=== PATIENT | female | born 1975 | race Two or more races ===

== ENCOUNTER 2025-06-21 21:08 | Inpatient (IN) | payer BC, OTHER ==
[~2025-06-21] VITALS: Ht 165.1 cm; Wt 89.8 kg
[~2025-06-21 21:08] MED LIST: METF-370 PO
--- NOTE | 2025-06-21 21:16 | ED.PDOC ---
General HPI Comments 49-year-old female who came to ER for abdominal pain. Patient has history of diabetes and kidney stones. For the past week, she has been experiencing supra pubic abdominal pain, pressure, associated with dysuria and gross hematuria. Patient was seen 3 days ago at the clinic, was prescribed with Septra, however symptoms persisted despite the medications. 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[employer]IC [employer] DES[employer]ER Hx Family History Family History: Reviewed,noncontributory to illness Social History Smoker: Non-Smoker Alcohol: Denies ETOH Use Drugs: Denies Drug Use Lives In: Home Constitutional: denies: chills, diaphoresis, fatigue, fever, malaise, sweats, weakness, others EENTM: denies: blurred vision, double vision, ear bleeding, ear discharge, ear drainage, ear pain, ear ringing, eye pain, eye redness, hearing loss, mouth pain, mouth swelling, nasal discharge, nose bleeding, nose congestion, nose pain, photophobia, tearing, throat pain, throat swelling, voice changes, others Respiratory: denies: cough, hemoptysis, orthopnea, SOB at rest, shortness of breath, SOB with excertion, stridor, wheezing, others Cardiovascular: denies: chest pain, dizzy spells, diaphoresis, Dyspnea on exertion, edema, irregular heart beat, left arm pain, lightheadedness, palpitations, PND, syncope, others Gastrointestinal: reports: abdominal pain; denies: abdomen distended, blood streaked bowels, constipated, diarrhea, dysphagia, difficulty swallowing, hematemesis, melena, nausea, poor appetite, poor fluid intake, rectal bleeding, rectal pain, vomiting, others Genitourinary: reports: burning, dysuria, hematuria; denies: abnormal vagina bleeding, dyspareunia, flank pain, frequency, incontinence, pain, , vagi na discharge, urgency, others Neurological: denies: dizziness, fainting, headache, left sided numbness, left sided weakness, numbness, paresthesia, pre-existing deficit, right sided numbness, right sided weakness, seizure, speech problems, tingling, tremors, weakness, others Musculoskeletal: denies: back pain, gout, joint pain, joint swelling, muscle pain, muscle stiffness, neck pain, others Integumetry: denies: bruises, change in color, change in hair/nails, dryness, laceration, lesions, lumps, rash, wounds, others Allergic/Immunocompromised: denies: Difficulty Healing, Frequent Infections, Hives, Itching, others Hematologic/Lymphatic: denies: anemia, blood clots, easy bleeding, easy bruising, swollen glands, others Endocrine: denies: excessive hunger, excessive sweating, excessive thirst, excessive urination, flushing, intolerance to cold, intolerance to heat, unexplained weight gain, unexplained weight loss, others Psychiatric: denies: anxiety, bipolar disorder, depression, hopeless, panic disorder, schizophrenia, sleepless, suicidal, others Physical Exam General Appearance: No Apparent Distress, Normal HEENT: Normal ENT Inspection, Pharynx Normal, TMs Normal Neck: Full Range of Motion, Non-Tender, Normal, Normal Inspection Respiratory: Chest Non-Tender, Lungs Clear, No Accessory Muscle Use, No Respiratory Distress, Normal Breath Sounds Cardiovascular: No Edema, No JVD, No Murmur, No Gallop, Normal Peripheral Pulses, Regular Rate/Rhythm Breast Exam: Deferred Gastrointestinal: No Organomegaly, Non Tender, No Pulsatile Mass, Normal Bowel Sounds, Soft Genitalia: Deferred Pelvic: Deferred Rectal: Deferred Extremities: No calf tenderness, Normal capillary refill, Normal inspection, Normal range of motion, Non-tender, No pedal edema Musculoskeletal : Apperance: Normal Neurologic: Alert, 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 Was a procedure done?: No EKG EKG : Pulse Rate (adult): 95 [place]: RAD Cardiac Rhythm: NSR Differential Diagnosis Kidney stone (Female): Musculoskeletal pain, Pyelonephritis, Renal failure, Strain, Urinary obstruction, Urolithiasis Urinary Problem (Female): Pyelonephritis, Urinary retention, Urolithiasis, UTI X-Ray, Labs, Meds, VS Vital Signs Date Time Temp Pulse Resp B/P (MAP) Pulse Ox O2 Delivery O2 Flow Rate FiO2 06/21/25 22:01 95 06/21/25 21:08 98.1 104 18 144/88 95 98.1 Lab Test 06/21/25 21:30 06/21/25 21:14 Range/Units White Blood Count 9.9 4.4-10.8 10^3/uL Red Blood Count 5.01 4.0-5.20 10^6/uL Hemoglobin 14.6 12.2-16.2 g/dL Hematocrit 42.0 36.0-46.0 % Mean Corpuscular Volume 83.9 80.0-100.0 fL Mean Corpuscular Hemoglobin 29.1 28.0-32.0 pg Mean Corpuscular Hemoglobin Concent 34.7 32.0-36.0 g/dL Red Cell Distribution Width 13.5 11.8-14.3 % Platelet Count 318 140-450 10^3/uL Mean Platelet Volume 7.8 6.9-10.8 fL Neutrophils (%) (Auto) 61.1 37.0-80.0 % Lymphocytes (%) (Auto) 30.4 10.0-50.0 % Monocytes (%) (Auto) 6.8 0.0-12.0 % Eosinophils (%) (Auto) 1.3 0.0-7.0 % Basophils (%) (Auto) 0.4 0.0-2.0 % Neutrophils # (Auto) 6.1 1.6-8.6 10 ^3/uL Lymphocytes # (Auto) 3.0 0.4-5.4 10 ^3/uL Monocytes # (Auto) 0.7 0-1.3 10 ^3/uL Eosinophils # (Auto) 0.1 0-0.8 10 ^3/uL Basophils # (Auto) 0 0-0.2 10 ^3/uL Nucleated Red Blood Cells 0.0 % Sodium Level 141 136-145 mmol/L Potassium Level 4.2 3.5-5.1 mmol/L Chloride Level 105 98-107 mmol/L Carbon Dioxide Level 26 20-31 mmol/L Anion Gap 10 5-15 Blood Urea Nitrogen 11 9-23 mg/dL Creatinine 0.72 0.550-1.02 mg/dL Glomerular Filtration Rate Calc 102 >90 mL/min BUN/Creatinine Ratio 15.3 10.0-20.0 Serum Glucose 166 H 74-106 mg/dL Calcium Level 9.8 8.7-10.4 mg/dL Total Bilirubin 0.4 0.2-1.0 mg/dL Aspartate Amino Transferase (AST) 16 13-40 U/L Alanine Aminotransferase (ALT) 24 7-40 U/L Alkaline Phosphatase 72 46-116 U/L Total Protein 6.9 5.7-8.2 g/dL Albumin 4.7 3.2-4.8 g/dL Lipase 48 12-53 U/L Urine Color Colorless Yellow Urine Clarity Turbid H Clear Urine pH 6.5 5.0-9.0 Urine Specific [place] 1.020 1.001-1.035 Urine Protein 2+ H Negative Urine Ketones Negative Negative Urine Blood 2+ H Negative /uL Urine Nitrite Negative Negative Urine Bilirubin Negative Negative Urine Urobilinogen Normal Negative mg/dL Urine Leukocyte Esterase 3+ Negative /uL Urine RBC 68 0 - 4 /hpf Urine WBC Clumps Present None Seen /hpf Urine Microscopic WBC 518 H 0-5 /HPF Urine Squamous Epithelial Cells Few <5 /hpf Urine Bacteria Few H None Seen /hpf Urine Mucus Few None Seen Urine Glucose 1+ H Normal mg/dL COMPUTERIZED TOMOGRAPHY ABDOMEN AND PELVIS WITHOUT CONTRAST REASON FOR EXAM: abd pain COMPARISON: None TECHNIQUE: Spiral scans were acquired from the diaphragm to the symphysis pubis without intravenous contrast administration. 2-D coronal and sagittal reformatted images were provided. Radiation optimization: All CT scans at this facility use at least one of these dose optimization techniques: Automated exposure control mA and/or kV adjustment per patient size (includes targeted exams where dose is matched to clinical indication) or iterative reconstruction. RADIATION DOSE: CTDI: 13.92 mGy DLP: 901.27 mGy-cm FINDINGS: There are innumerable tiny cavitary lesions at both lung bases measuring up to 2 mm. There is no pleural effusion. There is no pericardial effusion. The spleen is not enlarged. The liver is normal in size and contour. Evaluation of the abdominal contents is suboptimal in the absence of intravenous contrast. The gallbladder is surgically absent. Unenhanced appearance of the pancreas is grossly unremarkable. The adrenal glands are normal. The kidneys are similar in size. There is mild left perinephric and left periureteral stranding. There is no hydronephrosis of either kidney. No renal, ureteral, or bladder calculus is identified. The urinary bladder it appears thick-walled although it is not well distended. The uterus is absent. The ovaries are not seen and may also be absent. No pathologic lymphadenopathy is identified by size criteria. There is no free fluid identified in the abdomen or pelvis. The colonic stool burden is small. The appendix is not seen. There is no pericecal inflammatory change. No acute osseous abnormality is identified. IMPRESSION: Left perinephric and periureteral stranding. No hydronephrosis. No renal or ureteral or bladder calculus is identified. This may be secondary to a recently passed left kidney stone . Ascending urinary tract infection could appear similarly. Correlate clinically with history and physical exam. Innumerable tiny cavitary lesions at both lung bases measuring up to 2 mm. While only the lung bases are visualized on this study, this is concerning for possible septic emboli. Correlate clinically. Dedicated CT of the chest is recommended. Time of 1ST Reevaluation: 21:12 Reevaluation 1ST: Unchanged Patient Education/Counseling: Diagnosis, Treatment Family Education/Counseling: Diagnosis, Treatment Sepsis focused exam: focus exam completed (Patient was given 1 L of normal saline IV fluids rather than the full 30 milligrams/kilogram due to concerns of the fluid overload), time: (2200) SEPSIS Sepsis Screen Physician Orders Ct Ab Pel Wo Con-No Oral Or Iv (06/21/25 21:14) Lactic Acid W/ Reflex Order (06/21/25 23:01) Blood Culture (06/21/25 23:01) NS (06/21/25 23:15) Zosyn Extended Infusion (06/21/25 23:15) Vital Signs Date Time Temp Pulse Resp B/P (MAP) Pulse Ox O2 Delivery O2 Flow Rate FiO2 06/21/25 22:01 95 06/21/25 21:08 98.1 104 18 144/88 95 98.1 Laboratory Tests Test 06/21/25 21:30 White Blood Count 9.9 10^3/uL (4.4-10.8) Departure 1 Departure Time of Disposition: 23:05 Impression: Primary Impression: Pyelonephritis Additional Impression: Acute septic pulmonary embolism Disposition: 09 ADMITTED INPATIENT Condition: Guarded Comments 49-year-old female is complaining of abdominal pain and nausea. On her lab review her blood glucose is mildly elevated 166. Urinalysis shows signs of a urinary infection with 3+ leukocytes and 2+ blood. CT of the abdomen and pelvis shows possible signs of early pyelonephritis with some stranding around the left ureter. There is also multiple small lesions on the base of both of her lungs consistent with possible septic emboli. Patient was given IV fluids and IV Zosyn antibiotics. Patient will need admission for pyelonephritis and septic emboli Critical Care Note Critical Care Time?: Yes (35 min-critical care time only) Critical care comment: Total critical care time: Approximately 36 minutes Due to a high probability of clinically significant, life threatening deterioration, the patient required my highest level of preparedness to intervene emergently and I personally spent this critical care time directly and personally managing the patient. This critical care time included obtaining a history; examining the patient; pulse oximetry; ordering and review of studies; arranging urgent treatment with development of a management plan; evaluation of patient's response to treatment; frequent reassessment; and, discussions with other providers. This critical care time was performed to assess and manage the high probability of imminent, life-threatening deterioration that could result in multi-organ failure. It was exclusive of separately billable procedures and treating other patients. Stability Stability form required: No Heart Score Heart Score: Heart Score Response (Comments) Value History N/A 0 EKG N/A 0 Age N/A 0 Risk Factors N/A 0 Troponin N/A 0 Total 0 I personally scribed for TREVON NOGUEIRA MD ([facility]) on 06/21/25 at 21:16. Electronically submitted by Dominick Thapa ([facility] [employer]). I personally scribed for TREVON NOGUEIRA MD ([facility]) on 06/21/25 at 22:01. Electronically submitted by Dominick Thapa ([facility] I personally scribed for TREVON NOGUEIRA MD ([facility]) on 06/21/25 at 22:42. Electronically submitted by Dominick Thapa ([facility]). TREVON NOGUEIRA MD Jun 21, 2025 21:16
[2025-06-21 21:29] LABS: Urine Protein, UAD 2+ (Negative); Urine WBC Clumps PRESENT /hpf (None Seen)
[2025-06-21 21:46] LABS: Hematocrit 42.0 % (36.0-46.0); Hemoglobin 14.6 g/dL (12.2-16.2); Mean Corpuscular Hemoglobin 29.1 pg (28.0-32.0); Mean Corpuscular Volume 83.9 fL (80.0-100.0); Nucleated Red Blood Cells % 0.0 %
[2025-06-21 22:03] LABS: Alanine Aminotransferase 24 U/L (7-40); Albumin 4.7 g/dL (3.2-4.8); Alkaline Phosphatase 72 U/L (46-116); Anion Gap 10 (5-15); BUN/Creatinine Ratio 15.3 (10.0-20.0); Blood Urea Nitrogen 11 mg/dL (9-23); Calcium 9.8 mg/dL (8.7-10.4); Carbon Dioxide 26 mmol/L (20-31); Chloride 105 mmol/L (98-107); Lipase 48 U/L (12-53); Potassium 4.2 mmol/L (3.5-5.1); Sodium 141 mmol/L (136-145); Total Protein 6.9 g/dL (5.7-8.2)
[2025-06-21 22:04] LABS: Bilirubin, Total 0.4 mg/dL (0.2-1.0)
[2025-06-21 22:11] LABS: Glucose 166 mg/dL (74-106)
--- NOTE | 2025-06-21 22:40 | DVH ---
COMPUTERIZED TOMOGRAPHY ABDOMEN AND PELVIS WITHOUT CONTRAST REASON FOR EXAM: abd pain COMPARISON: None TECHNIQUE: Spiral scans were acquired from the diaphragm to the symphysis pubis without intravenous c ontrast administration. 2-D coronal and sagittal reformatted images were provided. Radiation optimiza tion: All CT scans at this facility use at least one of these dose optimization techniques: Automated exposure control mA and/or kV adjustment per patient size (includes targeted exams where dose is mat ched to clinical indication) or iterative reconstruction. RADIATION DOSE: CTDI: 13.92 mGy DLP: 901.27 mGy-cm FINDINGS: There are innumerable tiny cavitary lesions at both lung bases measuring up to 2 mm. There is no pleu ral effusion. There is no pericardial effusion. The spleen is not enlarged. The liver is normal in size and contour. Evaluation of the abdominal con tents is suboptimal in the absence of intravenous contrast. The gallbladder is surgically absent. Une nhanced appearance of the pancreas is grossly unremarkable. The adrenal glands are normal. The kidn eys are similar in size. There is mild left perinephric and left periureteral stranding. There is no hydronephrosis of either kidney. No renal, ureteral, or bladder calculus is identified. The urinary bladder it appears thick-walled although it is not well distended. The uterus is absent. The ovaries are not seen and may also be absent. No pathologic lymphadenopathy is identified by size criteria. T here is no free fluid identified in the abdomen or pelvis. The colonic stool burden is small. The hannah endix is not seen. There is no pericecal inflammatory change. No acute osseous abnormality is identi fied. IMPRESSION: Left perinephric and periureteral stranding. No hydronephrosis. No renal or ureteral or bladder valencia culus is identified. This may be secondary to a recently passed left kidney stone . Ascending urinary tract infection could appear similarly. Correlate clinically with history and physical exam. Innumerable tiny cavitary lesions at both lung bases measuring up to 2 mm. While only the lung bases are visualized on this study, this is concerning for possible septic emboli. Correlate clinically. De dicated CT of the chest is recommended.
[2025-06-21] MEDS ORDERED: ACETAMINOPHEN 325 MG TAB PO PRN (23:15)
[2025-06-21] MEDS ORDERED: ONDANSETRON HCL 4 MG/2 ML VIAL IV PRN (23:15)
[2025-06-21] MEDS ORDERED: NITROGLYCERIN 0.4 MG SL TAB SL PRN (23:15)
[2025-06-21] MEDS ORDERED: HYDROcodone-ACET 5/325MG TAB PO PRN (23:15)
[2025-06-21] MEDS ORDERED: MORPHINE SULFATE INJ 2 MG/ml SYRG IV PRN ×2 (23:15)
[2025-06-21] MEDS: SODIUM CHLORIDE 0.9% 1,000 ML IV ONE (23:48)
--- NOTE | 2025-06-21 23:48 | DVHHPRES ---
History of Present Illness Resident Creating Document: SURINDER WILEY RESIDENT History of Present Illness Kalli Troy, 49-year-old female with a history of Type II diabetes, obesity, chronic constipation, kidney stones, and recent post-operative status presented to the ER ambulatory arrival with moderate suprapubic abdominal pain and pressure ongoing for several days. Symptoms began spontaneously and have been intermittent, including dysuria and gross hematuria, with a moderate inability to void noted for several minutes prior to arrival. She was evaluated at a clinic three days ago and prescribed bactrim, but her symptoms have persisted despite treatment. She denies fever, nausea, or vomiting. Information was obtained directly from the patient and reviewed alongside nursing notes. Cardiovascular: hyperipidemia Endocrine: Diabetes Past Surgical History: None Family History: None (non contributory ) Smoke: No ALCOHOL: none Drugs: None Lives: with Family Domestic Violence: Neg Review of Systems Constitutional: Yes: Chills, Malaise; No: Fever, Sweats, Weakness, Other Eyes: No: Pain, Vision change, Conjunctivae inflammation, Eyelid inflammation, Other, Redness ENT: No: Ear pain, Ear discharge, Nose pain, Nose discharge, Nose congestion, Mouth pain, Mouth swelling, Throat pain, Throat swelling, Other Respiratory: No: Cough, Dry, Shortness of breath, SOB with excertion, Wheezing, Hemoptysis, Pleuritic Pain, Sputum, Wheezing, Other Cardiovascular: No: Chest Pain, Palpitations, Orthopnea, Paroxysmal Noc. Dyspnea, Edema, Lt Headedness, Other Gastrointestinal: No: Nausea, Vomiting, Abdominal Pain, Diarrhea, Constipation, Melena, Hematochezia, Other Genitourinary: Dysuria, Frequency; No Incontinence; Hematuria; No Retention, No Other Musculoskeletal: No: other, neck pain, shoulder pain, arm pain, back pain, hand pain, leg pain, foot pain Skin: No: Rash, Lesions, Jaundice, Bruising, Other Neurological: No: Weakness, Numbness, Incoordination, Change in speech, Confusion, Seizures, Other Medications Current Medications Medications Dose Ordered Sig/Mira Route Start Time Stop Time Status Last Admin Dose Admin Acetaminophen/ Hydrocodone Bitart 1 tab Q4HP PRN PO 06/21/25 23:15 UNV Ondansetron HCl 4 mg Q4HP PRN IV 06/21/25 23:15 UNV Enoxaparin Sodium 40 mg DAILY SC 06/22/25 10:00 UNV Acetaminophen 650 mg Q6HP PRN PO 06/21/25 23:15 UNV Morphine Sulfate 2 mg Q4HPRN PRN IV 06/21/25 23:15 UNV Nitroglycerin 0.4 mg Q5MINP PRN SL 06/21/25 23:15 UNV Morphine Sulfate 2 mg Q30M PRN IV 06/21/25 23:15 UNV Piperacillin Sod/ Tazobactam Sod 100 ml @ 100 mls/hr Q6HR IV 06/22/25 06:00 UNV Pantoprazole Sodium 40 mg DAILY IV 06/21/25 23:45 UNV Exam Vital Signs Vital Signs Date Time Temp Pulse Resp B/P (MAP) Pulse Ox O2 Delivery O2 Flow Rate FiO2 06/21/25 23:39 99.3 95 18 119/71 (87) 95 99.3 General Appearance: Alert, Oriented X3, mild distress HEENT: Atraumatic, Mucous membr. moist/pink Respiratory: Clear to auscultation, Normal air movement Cardiovascular: Regular rate, Normal S1, Normal S2, No murmurs Abdominal: Normal bowel sounds, Soft, No masses, Other (left CVA angle tenderness) Extremities: No clubbing, No cyanosis, No edema, Normal pulses Skin: No rashes, No breakdown, No significant lesion Neuro: Normal gait, Normal speech Psych/Mental Status: Mental status NL, Mood NL Labs/Xrays Labs Test 06/21/25 23:10 06/21/25 21:30 06/21/25 21:14 Range/Units White Blood Count 9.9 4.4-10.8 10^3/uL Red Blood Count 5.01 4.0-5.20 10^6/uL Hemoglobin 14.6 12.2-16.2 g/dL Hematocrit 42.0 36.0-46.0 % Mean Corpuscular Volume 83.9 80.0-100.0 fL Mean Corpuscular Hemoglobin 29.1 28.0-32.0 pg Mean Corpuscular Hemoglobin Concent 34.7 32.0-36.0 g/dL Red Cell Distribution Width 13.5 11.8-14.3 % Platelet Count 318 140-450 10^3/uL Mean Platelet Volume 7.8 6.9-10.8 fL Neutrophils (%) (Auto) 61.1 37.0-80.0 % Lymphocytes (%) (Auto) 30.4 10.0-50.0 % Monocytes (%) (Auto) 6.8 0.0-12.0 % Eosinophils (%) (Auto) 1.3 0.0-7.0 % Basophils (%) (Auto) 0.4 0.0-2.0 % Neutrophils # (Auto) 6.1 1.6-8.6 10 ^3/uL Lymphocytes # (Auto) 3.0 0.4-5.4 10 ^3/uL Monocytes # (Auto) 0.7 0-1.3 10 ^3/uL Eosinophils # (Auto) 0.1 0-0.8 10 ^3/uL Basophils # (Auto) 0 0-0.2 10 ^3/uL Nucleated Red Blood Cells 0.0 % Sodium Level 141 136-145 mmol/L Potassium Level 4.2 3.5-5.1 mmol/L Chloride Level 105 98-107 mmol/L Carbon Dioxide Level 26 20-31 mmol/L Anion Gap 10 5-15 Blood Urea Nitrogen 11 9-23 mg/dL Creatinine 0.72 0.550-1.02 mg/dL Glomerular Filtration Rate Calc 102 >90 mL/min BUN/Creatinine Ratio 15.3 10.0-20.0 Serum Glucose 166 H 74-106 mg/dL Calcium Level 9.8 8.7-10.4 mg/dL Total Bilirubin 0.4 0.2-1.0 mg/dL Aspartate Amino Transferase (AST) 16 13-40 U/L Alanine Aminotransferase (ALT) 24 7-40 U/L Alkaline Phosphatase 72 46-116 U/L Total Protein 6.9 5.7-8.2 g/dL Albumin 4.7 3.2-4.8 g/dL Urine Color Colorless Yellow Urine Clarity Turbid H Clear Urine pH 6.5 5.0-9.0 Urine Specific Ashley 1.020 1.001-1.035 Urine Protein 2+ H Negative Urine Ketones Negative Negative Urine Blood 2+ H Negative /uL Urine Nitrite Negative Negative Urine Bilirubin Negative Negative Urine Urobilinogen Normal Negative mg/dL Urine Leukocyte Esterase 3+ Negative /uL Urine RBC 68 0 - 4 /hpf Urine WBC Clumps Present None Seen /hpf Urine Microscopic WBC 518 H 0-5 /HPF Urine Squamous Epithelial Cells Few <5 /hpf Urine Bacteria Few H None Seen /hpf Urine Mucus Few None Seen Urine Glucose 1+ H Normal mg/dL SEPSIS Sepsis Screen Date sepsis recognized/suspect: Jun 21, 2025 Time Sepsis recognized/suspect: 2107 Recent Procedure: No On Antibiotic Therapy: Yes Respiratory Rate >20: No Heart Rate >90: Yes Temp<36 C (96.8 F) or >38.3 C: No SBP <90 or MAP <65 mmHG: No New Acute Mental Status Change: No Is the patient on CPAP, BIPAP,: No Physician Orders Ct Ab Pel Wo Con-No Oral Or Iv (06/21/25 21:14) Lactic Acid W/ Reflex Order (06/21/25 23:01) Blood Culture (06/21/25 23:01) Sodium Chloride 0.9% (06/21/25 23:15) Piperacillin-Tazob 3.375gm (Zosyn 3.375g (06/21/25 23:15) Admit (06/21/25 23:15) Allergies (06/21/25 23:15) Code Status (06/21/25 23:15) Hydrocodone-Acet 5/325mg Tab ([place] 5/32 (06/21/25 23:15) Ondansetron Hcl (Zofran) (06/21/25 23:15) Enoxaparin Sodium (Lovenox) (06/22/25 10:00) Complete Blood Count (06/22/25 04:00) Comprehensive Metabolic Panel (06/22/25 04:00) Cardiac Diet-2gna,Lofat,Lochol (06/22/25 Breakfast) Condition: Fair (06/21/25 23:15) Acetaminophen Tablet (Tylenol Tablet) (06/21/25 23:15) Morphine Sulfate Injection (06/21/25 23:15) Nitroglycerin Sublingual (Ntrostat Subli (06/21/25 23:15) Morphine Sulfate Injection (06/21/25 23:15) Oxygen By Nasal Cannula (06/21/25 23:15) Stat Ekg For Chest Pain (06/21/25 23:15) Notify Md Of Changes From Base (06/21/25 23:15) Transformer Assembler For 24 Hours (06/21/25 23:15) Emergency Dysrhythmia Protocol (06/21/25 23:15) Rhythm Strips Once Every Shift (06/21/25 23:15) Urine Bacterial Culture (06/21/25 23:19) Lactated Ringer's (06/21/25 23:30) Lactated Ringer's (06/21/25 23:30) Communication Order (06/21/25 23:21) Piperacillin-Tazob 3.375gm (Zosyn 3.375g (06/22/25 06:00) Beta Hcg, Quantitative (06/21/25 23:28) Lactulose Oral (06/21/25 23:30) Lipase (06/21/25 23:29) D-Dimer (06/21/25 23:29) Pantoprazole (Protonix) (06/21/25 23:45) Vital Signs Date Time Temp Pulse Resp B/P (MAP) Pulse Ox O2 Delivery O2 Flow Rate FiO2 06/21/25 23:39 99.3 95 18 119/71 (87) 95 99.3 06/21/25 22:01 95 06/21/25 21:08 98.1 104 18 144/88 95 98.1 Laboratory Tests Test 06/21/25 21:30 06/21/25 23:10 White Blood Count 9.9 10^3/uL (4.4-10.8) Lactic Acid Level Pending Assessment/Plan Assessment/Plan #1 Left pyelonephritis, complicated UTI, no previously known MDR, Left perinephric and periureteral stranding: iv Zosyn, iv fluid, blood and urine culture f/u, pain mx. #2 Dyslipidemia: On fenofibrate 145 mg daily #3 Chronic constipation: On laxatives at home, continue #4 Grade 1 obesity: On Ozempic/ GLP 1 #5 Diabetes mellitus type II: no home insulin, on oral metformin 1000 mg b.i.d. and glimepiride, check HbA1c, lantus+ssi target BG 140-180 in hospital. #6 Possible septic emboli: CT abdomen shows, innumerable tiny cavitary lesions at both lung bases measuring up to 2 mm, in room air no respiratory symptoms, D dimer, blood culture, covid and influenza to check, check EKG & TTE/ECHO. if symptoms continue consider CTPE. #7 H/o recurrent renal stones, not visible currently in ct. could have passed. renal US to have better sensitivity. continue hydration #8 Mild dehydration, noted clinically, iv hydration continue #9 Lactic acidosis: could be type B due to home metformin, partial SIRS response. PUD prophylaxis: protonix 40mg daily DVT prophylaxis: Levonox 40mg daily Barriers to discharge: Medical diagnosis and management in progress. Patient lives with self / family. Independent/need supportive device/wheelchair/person support for ADL. PT and SW consult as needed. PCP: Dr. Perea Specialist Relevant To Admission: None Case discussed with Dr. Carroll. Code Status: Full Code. Goals of care and care plan discussion needed total 29 minutes bedside. Plan discussed with: Patient, Other (primary team, RN ) My Orders Orders - SURINDER WILEY RESIDENT Procedure Category Date Status Time Admit ADMIT 06/21/25 Transmitted 23:15 Allergies [facility] 06/21/25 In Process 23:15 Code Status CODE 06/21/25 Transmitted 23:15 Hydrocodone-Acet PHA 06/21/25 Logged 5/325mg Tab ([place] 23:15 Ondansetron Hcl PHA 06/21/25 Logged (Zofran) 23:15 Enoxaparin Sodium PHA 06/22/25 Logged (Lovenox) 10:00 Complete Blood Count LAB 06/22/25 Verified 04:00 Comprehensive LAB 06/22/25 Verified Metabolic Panel 04:00 Cardiac DIET 06/22/25 Transmitted Diet-2gna,Lofat,Lochol Breakfast Condition: Fair [facility] 06/21/25 In Process 23:15 Acetaminophen Tablet PHA 06/21/25 Logged (Tylenol Tablet) 23:15 Morphine Sulfate PHA 06/21/25 Logged Injection 23:15 Nitroglycerin PHA 06/21/25 Logged Sublingual (Ntrostat 23:15 Morphine Sulfate PHA 06/21/25 Logged Injection 23:15 Oxygen By Nasal RT 06/21/25 Transmitted Cannula 23:15 Stat Ekg For Chest [facility] 06/21/25 In Process Pain 23:15 Notify Md Of Changes [facility] 06/21/25 In Process From Base 23:15 Transformer Assembler For [facility] 06/21/25 In Process 24 Hours 23:15 Emergency Dysrhythmia [facility] 06/21/25 In Process Protocol 23:15 Rhythm Strips Once [facility] 06/21/25 In Process Every Shift 23:15 Urine Bacterial LALITO 06/21/25 In Process Culture 23:19 Lactated Ringer's PHA 06/21/25 Logged 23:30 Lactated Ringer's PHA 06/21/25 Logged 23:30 Communication Order ORDERS 06/21/25 Transmitted 23:21 Piperacillin-Tazob PHA 06/22/25 Logged 3.375gm (Zosyn 3.375g 06:00 Beta Hcg, Quantitative LAB 06/21/25 In Process 23:28 Lactulose Oral PHA 06/21/25 Logged 23:30 Lipase LAB 06/21/25 In Process 23:29 D-Dimer LAB 06/21/25 In Process 23:29 Pantoprazole PHA 06/21/25 Logged (Protonix) 23:45 Date of Service: Jun 21, 2025 Billing Provider: KRISTA CARROLL MD Common Visit Codes: [id number] INP/OBS CARE (HIGH) Secondary Visit Codes: [id number] CARE PLAN 30 MINUTES SURINDER WILEY RESIDENT Jun 21, 2025 23:48
[2025-06-21] MEDS: PIPERACILLIN-TAZOB 3.375GM 100 ML IV ONE (23:49)
[2025-06-21 23:50] LABS: Lactic Acid w/Reflex 2.1 mmol/L (0.4-2.0)
[2025-06-22] VITALS (9 sets, daily range): BP systolic 101–142; BP diastolic 64–87; PULSE 71–100; RESP 16–19; TEMP 98–98.9; O2SAT 95–100
[2025-06-22] MEDS ORDERED: DEXTROSE (50%) 50ML SYRG IV PRN
[2025-06-22] MEDS: LACTATED RINGER'S 1,000 ML IV ONE ×2 (01:15→03:25)
[2025-06-22] MEDS: PANTOPRAZOLE 40 MG/10 ML VIAL INJ IV SCH (01:30)
[2025-06-22] MEDS: LACTULOSE 20Gm/30ML SOLN PO ONE (01:30)
[2025-06-22 01:46] LABS: COVID19 ANTIGEN SOFIA FIA NEGATIVE (NEGATIVE)
[2025-06-22] MEDS: PIPERACILLIN-TAZOB 3.375GM 100 ML IV SCH (06:19)
[2025-06-22] MEDS: InsuLIN REG 1unit/0.01ml Soln (100units/ml) SC SCH (06:41)
[2025-06-22 06:42] LABS: Hematocrit 40.6 % (36.0-46.0); Hemoglobin 14.1 g/dL (12.2-16.2); Mean Corpuscular Hemoglobin 29.6 pg (28.0-32.0); Mean Corpuscular Volume 85.3 fL (80.0-100.0); Nucleated Red Blood Cells % 0.1 %
[2025-06-22] MEDS: INSULIN LANTUS (GLARGINE) 1 /0.01ml (100units/ml) SC SCH (06:43)
[2025-06-22] MEDS: ACCU-CHEK COMFORT CURVE STRIP VI SCH (06:45)
--- NOTE | 2025-06-22 06:51 | DVH ---
INDICATION: rule out radiolucent stones TECHNIQUE: Multiple real-time sonographic images of the kidneys and bladder were obtained. COMPARISON: None FINDINGS: RIGHT kidney measures 11.8 cm in length. No hydronephrosis. LEFT kidney measures 11.5 cm in length. No hydronephrosis. 0.5 cm nonobstructing stone in the left upper pole. No large intraluminal masses are seen in the bladder. IMPRESSION: No hydronephrosis. 0.5 cm nonobstructing stone of the left upper pole kidney.
[2025-06-22 06:57] LABS: Alanine Aminotransferase 20 U/L (7-40); Albumin 4.3 g/dL (3.2-4.8); Alkaline Phosphatase 62 U/L (46-116); Anion Gap 10 (5-15); BUN/Creatinine Ratio 12.1 (10.0-20.0); Bilirubin, Total 0.6 mg/dL (0.2-1.0); Calcium 9.1 mg/dL (8.7-10.4); Carbon Dioxide 24 mmol/L (20-31); Potassium 3.9 mmol/L (3.5-5.1); Sodium 141 mmol/L (136-145); Total Protein 6.3 g/dL (5.7-8.2)
[2025-06-22 06:58] LABS: Blood Urea Nitrogen 7 mg/dL (9-23); Chloride 107 mmol/L (98-107); Glucose 142 mg/dL (74-106)
[2025-06-22] MEDS ORDERED: METF-370 PO (06:58)
[2025-06-22] MEDS ORDERED: GLIM-38 PO (06:59)
[2025-06-22] MEDS: ENOXAPARIN SOD 40 MG/0.4 ML SYRINGE SC SCH (09:43)
--- NOTE | 2025-06-22 11:02 | DVH ---
Procedure: CT CHEST WITHOUT CONTRAST Reason for study/Clinical History: septic emboli Comparison Study: None TECHNIQUE: Multidetector CT of the chest was performed from the lung apices to the upper abdomen with out the use of intravenous contract. Axial, coronal and sagittal multiplanar reformats were performed . Radiation Dose Information: CT Dose: CTDI volume is 17.75 mGy. Dose-length product is 2.54 mGy*cm The dose indicators for CT are the volume Computed Tomography (CT) Dose Index (CTDIvol) and the Dose Length Product (DLP), and are measured in units of mGy and mGy-cm, respectively. These indicators are not patient dose, but values generated from the CT scanner acquisition factors. The report includes radiation exposure data for exposures received during this examination. FINDINGS: Lower neck: Unremarkable. Lungs: No focal consolidation. No suspicious pulmonary nodule. Dependent atelectasis. Heart/Vascular Structures: Normal heart size. No pericardial effusion. Lymph Nodes: No adenopathy Pleura: No pleural effusion or significant pneumothorax. Musculoskeletal: No acute osseous abnormality. Soft tissues: Normal. Upper abdomen: Hepatic steatosis. Hepatomegaly. IMPRESSION: No acute intrathoracic abnormality. Radiation optimization: All CT scans at this facility use at least one of these dose optimization wil hniques: automated exposure control mA and/or kV adjustment per patient size (includes targeted exam s where dose is matched to clinical indication) or iterative reconstruction.
--- NOTE | 2025-06-22 16:09 | DVHPNRES ---
Progress Note Date Seen: Jun 22, 2025 Resident Creating Document: SHANNAN LEONG RESIDENT Medical Necessity Reason Pt with a Central, PICC or Fol: No Subjective Review of Systems Kalli Troy, 49-year-old female with a history of Type II diabetes, obesity, chronic constipation, kidney stones, and recent post-operative status presented to the ER ambulatory arrival with moderate suprapubic abdominal pain and pressure ongoing for several days. She states the pain was an 8/10 in intensity when it began. Symptoms began spontaneously and have been intermittent, including dysuria and gross hematuria, with a moderate inability to void noted for several minutes prior to arrival. She was evaluated at a clinic three days ago and prescribed bactrim, but her symptoms have persisted despite treatment. She denies fever, nausea, or vomiting. Information was obtained directly from the patient and reviewed alongside nursing notes. The patient states that pain has reduced significantly and she was able to pass urine in the morning. Her CT abdomen showed possible septic emboli to both lung bases, so CT abdomen was done which was unremarkable. Cardiovascular: hyperipidemia Endocrine: Diabetes Past Surgical History: hysterectomy 10 years back, appendicectomy, cholecystectomy Family History: None (non contributory ) Smoke: No ALCOHOL: none Drugs: None Lives: with Family Domestic Violence: Neg Constitutional: Yes: Chills, Malaise; No: Fever, Sweats, Weakness, Other Eyes: No: Pain, Vision change, Conjunctivae inflammation, Eyelid inflammation, Other, Redness ENT: No: Ear pain, Ear discharge, Nose pain, Nose discharge, Nose congestion, Mouth pain, Mouth swelling, Throat pain, Throat swelling, Other Respiratory: No: Cough, Dry, Shortness of breath, SOB with excertion, Wheezing, Hemoptysis, Pleuritic Pain, Sputum, Wheezing, Other Cardiovascular: No: Chest Pain, Palpitations, Orthopnea, Paroxysmal Noc. Dyspnea, Edema, Lt Headedness, Other Gastrointestinal: No: Nausea, Vomiting, Abdominal Pain, Diarrhea, Constipation, Melena, Hematochezia, Other Genitourinary: Dysuria ; No Incontinence;no hematuria; No Retention, No Other Musculoskeletal: No: other, neck pain, shoulder pain, arm pain, back pain, hand pain, leg pain, foot pain Skin: No: Rash, Lesions, Jaundice, Bruising, Other Neurological: No: Weakness, Numbness, Incoordination, Change in speech, Confusion, Seizures, Other General Appearance: Alert, Oriented X3, mild distress HEENT: Atraumatic, Mucous membr. moist/pink Respiratory: Clear to auscultation, Normal air movement Cardiovascular: Regular rate, Normal S1, Normal S2, No murmurs Abdominal: Normal bowel sounds, Soft, No masses, Other (left CVA angle tenderness) Extremities: No clubbing, No cyanosis, No edema, Normal pulses Skin: No rashes, No breakdown, No significant lesion Neuro: Normal gait, Normal speech Psych/Mental Status: Mental status NL, Mood NL Objective vital signs Vital Sign Date Time Temp Pulse Resp B/P (MAP) Pulse Ox O2 Delivery O2 Flow Rate FiO2 06/22/25 13:00 98.7 78 18 142/86 (104) 98 98.7 06/22/25 08:00 Room Air* 0 21 Total Intake and Output 06/21/25 06/21/25 06/22/25 15:00 23:00 07:00 Intake Total 312 ml Balance 312 ml medications Current Medications Medications Dose Ordered Sig/Mira Route Start Time Stop Time Status Last Admin Dose Admin Acetaminophen/ Hydrocodone Bitart 1 tab Q4HP PRN PO 06/21/25 23:15 Ondansetron HCl 4 mg Q4HP PRN IV 06/21/25 23:15 Enoxaparin Sodium 40 mg DAILY SC 06/22/25 10:00 06/22/25 09:43 40 MG Acetaminophen 650 mg Q6HP PRN PO 06/21/25 23:15 Morphine Sulfate 2 mg Q4HPRN PRN IV 06/21/25 23:15 Nitroglycerin 0.4 mg Q5MINP PRN SL 06/21/25 23:15 Morphine Sulfate 2 mg Q30M PRN IV 06/21/25 23:15 Piperacillin Sod/ Tazobactam Sod 100 ml @ 100 mls/hr Q6HR IV 06/22/25 06:00 06/22/25 12:24 100 MLS/HR Pantoprazole Sodium 40 mg DAILY IV 06/21/25 23:45 06/22/25 09:43 40 MG Insulin Glargine 10 units QAM SC 06/22/25 07:00 06/22/25 06:43 10 UNITS Diagnostic Test (Pha) 1 strip ACHS 06/22/25 07:00 06/22/25 12:24 1 STRIP Insulin Human Regular ACHS SC 06/22/25 07:00 06/22/25 12:23 3 UNITS Dextrose 50 ml UD PRN IV 06/22/25 00:00 laboratory and microbiology Laboratory Tests 06/22/25 06:02 Test 06/22/25 06:02 Range/Units Serum Glucose 142 H 74-106 mg/dL Labs and/or images reviewed: Labs reviewed by me, Image(s) reviewed by me Problem List/Assessment/Plan Problem List/Assessment/Plan # Left pyelonephritis, complicated UTI, Left perinephric and periureteral stranding: iv Zosyn, iv fluid. #Dyslipidemia: On fenofibrate 145 mg daily # Chronic constipation On laxatives at home, continue # Grade 1 obesity: On Ozempic/ GLP 1 #Diabetes mellitus type II: no home insulin, on oral metformin 1000 mg b.i.d. and glimepiride, lantus+ssi target BG 140-180 in hospital. # Possible septic emboli: CT abdomen shows innumerable tiny cavitary lesions at both lung bases measuring up to 2 mm, in room air no respiratory symptoms,ruled out with CT chest #H/o recurrent renal stones, not visible currently in CT, could have passed # Mild dehydration iv hydration continued #Lactic acidosis: could be type B due to home metformin, partial SIRS response. PUD prophylaxis: protonix 40mg daily DVT prophylaxis: Levonox 40mg daily Barriers to discharge: Medical diagnosis and management in progress. PCP: Dr. Perea Plan discussed with Dr Pickett Code Status: Full Code. Goals of care and care plan discussion needed >20 minutes on 06/22/25 Plan discussed with: Patient, Other (primary team, RN ) Plan discussed with: Patient Date of Service: Jun 22, 2025 Billing Provider: JOSEPH JORGE MD Common Visit Codes: [id number] INP/OBS CARE(HIGH) SHANNAN LEONG RESIDENT Jun 22, 2025 16:09 JOSEPH JORGE MD Jun 25, 2025 11:48
--- NOTE | 2025-06-22 21:05 | DVHSR ---
APPROVED REPORT EXAM: Two-dimensional and M-mode echocardiogram with Doppler and color Doppler. Blood Pressure: 134/87 mmHg INDICATION Rule out right heart strain, structural heart disease RISK FACTORS Obesity: Height: 5'5", Weight: 199 DIMENSIONS LVDd4.4 (3.8-5.7cm)LA (2D)3.2 (1.9-4.0cm)Aortic Root3.3 (2.0-3.7cm) LVDs3.0 (2.5-4.0cm)LA (MM) (1.9-4.0cm)Aortic Cusp Exc1.7 (1.5-2.0cm) EF (%) 60.0 (55-70%)Rt. Atrium3.3 (1.9-4.0cm)Asc. Aorta cm IVSd1.1 (0.7-1.1cm)RV (D) (1.8-2.4cm) PWd1.0 (0.7-1.1cm) Mitral Valve MitralMitral Stenosis E wave1.01m/sMV Mean GR.mmHg A wave0.79m/sMV Peak GR.mmHg E/A ratio1.32D MVAcm2 DECEL [id number] 1/2 Timems Aortic Valve Aortic ValveAortic Stenosis V11.04m/Ramesh Mean GR.4mmHg V21.40m/Ramesh Peak GR.8mmHg LVOT Diameter2.0 (1.8-2.4cm)Doppler AVA2.33cm2 Pulmonic Valve V20.90m/s Tricuspid Valve TR Velocity2.40m/s [id number] Other Information Technically limited study due to body habitus. Conclusion LV EF IS 65% AND IS NORMAL NORMAL RV FUNCTION,SIZE AND PRESSURE NORMAL VALVES NO EFFUSION RVSP IS 26 MM OF HG AND IS NORMAL
[2025-06-23] VITALS (8 sets, daily range): BP systolic 106–138; BP diastolic 69–85; PULSE 64–72; RESP 16–19; TEMP 97.6–98; O2SAT 94–98
[2025-06-23] MEDS: PIPERACILLIN-TAZOB 3.375GM 100 ML IV SCH (01:59)
[2025-06-23 08:10] LABS: Anion Gap 11 (5-15); Carbon Dioxide 26 mmol/L (20-31); Chloride 104 mmol/L (98-107); Potassium 4.0 mmol/L (3.5-5.1); Sodium 141 mmol/L (136-145)
[2025-06-23 08:11] LABS: Calcium 9.3 mg/dL (8.7-10.4)
[2025-06-23 08:16] LABS: BUN/Creatinine Ratio 12.9 (10.0-20.0)
[2025-06-23 08:17] LABS: Blood Urea Nitrogen 8 mg/dL (9-23); Glucose 144 mg/dL (74-106)
--- NOTE | 2025-06-23 17:47 | DVHPNRES ---
Progress Note Date Seen: Jun 23, 2025 Resident Creating Document: SHANNAN LEONG RESIDENT Medical Necessity Reason Pt with a Central, PICC or Fol: No Subjective Review of Systems Kalli Troy, 49-year-old female with a history of Type II diabetes, obesity, chronic constipation, kidney stones, and recent post-operative status presented to the ER ambulatory arrival with moderate suprapubic abdominal pain and pressure ongoing for several days. She states the pain was an 8/10 in intensity. on admission. Symptoms began spontaneously and have been intermittent, including dysuria and gross hematuria, with a moderate inability to void noted for several minutes prior to arrival. She was evaluated at a clinic three days ago and prescribed bactrim, but her symptoms have persisted despite treatment. She denies fever, nausea, or vomiting. Information was obtained directly from the patient and reviewed alongside nursing notes. 06/22-The patient states that pain has reduced significantly and is 4/10in intenisty and she was able to pass urine in the morning. Her CT abdomen showed possible septic emboli to both lung bases, so CT abdomen was done which was unremarkable. 06/23- The patient states the pain has significantly come down to a 2/10 in intensity. She is able to pass urine and there is no hematuria. Repeat urine culture has been ordered. She was explained about her normal lab reports and her pending urine culture report. Cardiovascular: hyperipidemia Endocrine: Diabetes Past Surgical History: hysterectomy 10 years back, appendicectomy, cholecystectomy Family History: None (non contributory ) Smoke: No ALCOHOL: none Drugs: None Lives: with Family Domestic Violence: Neg Constitutional: No: Fever, Sweats, Weakness, Other Eyes: No: Pain, Vision change, Conjunctivae inflammation, Eyelid inflammation, Other, Redness ENT: No: Ear pain, Ear discharge, Nose pain, Nose discharge, Nose congestion, Mouth pain, Mouth swelling, Throat pain, Throat swelling, Other Respiratory: No: Cough, Dry, Shortness of breath, SOB with excertion, Wheezing, Hemoptysis, Pleuritic Pain, Sputum, Wheezing, Other Cardiovascular: No: Chest Pain, Palpitations, Orthopnea, Paroxysmal Noc. Dyspnea, Edema, Lt Headedness, Other Gastrointestinal: mild lower Abdominal Pain, No: Nausea, Vomiting,Diarrhea, Constipation, Melena, Hematochezia, Other Genitourinary: Dysuria ; No Incontinence;no hematuria; No Retention, No Other Musculoskeletal: No: other, neck pain, shoulder pain, arm pain, back pain, hand pain, leg pain, foot pain Skin: No: Rash, Lesions, Jaundice, Bruising, Other Neurological: No: Weakness, Numbness, Incoordination, Change in speech, Confusion, Seizures, Other Objective vital signs Vital Sign Date Time Temp Pulse Resp B/P (MAP) Pulse Ox O2 Delivery O2 Flow Rate FiO2 06/23/25 17:00 98.0 72 16 124/80 (95) 98 98.0 06/23/25 08:00 Room Air* 0 21 Total Intake and Output 06/22/25 06/22/25 06/23/25 15:00 23:00 07:00 Intake Total 100 ml 1250 ml 100 ml Balance 100 ml 1250 ml 100 ml medications Current Medications Medications Dose Ordered Sig/Mira Route Start Time Stop Time Status Last Admin Dose Admin Acetaminophen/ Hydrocodone Bitart 1 tab Q4HP PRN PO 06/21/25 23:15 Ondansetron HCl 4 mg Q4HP PRN IV 06/21/25 23:15 Enoxaparin Sodium 40 mg DAILY SC 06/22/25 10:00 06/22/25 09:43 40 MG Acetaminophen 650 mg Q6HP PRN PO 06/21/25 23:15 Morphine Sulfate 2 mg Q4HPRN PRN IV 06/21/25 23:15 Nitroglycerin 0.4 mg Q5MINP PRN SL 06/21/25 23:15 Morphine Sulfate 2 mg Q30M PRN IV 06/21/25 23:15 Pantoprazole Sodium 40 mg DAILY IV 06/21/25 23:45 06/23/25 10:47 40 MG Insulin Glargine 10 units QAM SC 06/22/25 07:00 06/23/25 06:18 10 UNITS Diagnostic Test (Pha) 1 strip ACHS 06/22/25 07:00 06/23/25 11:48 1 STRIP Insulin Human Regular ACHS SC 06/22/25 07:00 06/23/25 11:49 4 UNITS Dextrose 50 ml UD PRN IV 06/22/25 00:00 Piperacillin Sod/ Tazobactam Sod 100 ml @ 100 mls/hr Q8H IV 06/23/25 02:00 06/23/25 10:47 100 MLS/HR Examination General Appearance: Alert, Oriented X3, mild distress HEENT: Atraumatic, Mucous membr. moist/pink Respiratory: Clear to auscultation, Normal air movement Cardiovascular: Regular rate, Normal S1, Normal S2, No murmurs Abdominal: Normal bowel sounds, Soft, No masses, Other (left CVA angle tenderness) Extremities: No clubbing, No cyanosis, No edema, Normal pulses Skin: No rashes, No breakdown, No significant lesion Neuro: Normal gait, Normal speech Psych/Mental Status: Mental status NL, Mood NL laboratory and microbiology Laboratory Tests 06/23/25 05:58 06/22/25 06:02 Test 06/23/25 05:58 Range/Units Serum Glucose 144 H 74-106 mg/dL Microbiology Date/Time Source Procedure Growth Status 06/21/25 23:12 Blood Blood Culture - Preliminary NO GROWTH AFTER 24 HOURS OF INCUBATION. Resulted 06/21/25 22:14 Voided Urine Urine Culture - Preliminary Resulted Labs and/or images reviewed: Labs reviewed by me, Image(s) reviewed by me Problem List/Assessment/Plan Problem List/Assessment/Plan # Left pyelonephritis, complicated UTI, Left perinephric and periureteral stranding: iv Zosyn, iv fluid, #Dyslipidemia: On fenofibrate 145 mg daily # Chronic constipation On laxatives at home, continued # Grade 1 obesity: On Ozempic/ GLP 1 #Diabetes mellitus type II: no home insulin, on oral metformin 1000 mg b.i.d. and glimepiride, lantus+ssi target BG 140-180 in hospital. # Possible septic emboli: CT abdomen shows innumerable tiny cavitary lesions at both lung bases measuring up to 2 mm, in room air no respiratory symptoms,ruled out with CT chest #H/o recurrent renal stones, not visible currently in CT, could have passed # Mild dehydration iv hydration continued #Lactic acidosis: could be type B due to home metformin, partial SIRS response. PUD prophylaxis: protonix 40mg daily DVT prophylaxis: Levonox 40mg daily Barriers to discharge: Medical diagnosis and management in progress. PCP: Dr. Perea Plan discussed with Dr Pickett Code Status: Full Code. Goals of care and care plan discussion needed >20 minutes on 06/23/25 Plan discussed with: Patient Plan discussed with: Patient Date of Service: Jun 23, 2025 Billing Provider: ADRIAN PICKETT MD Common Visit Codes: [id number] INP/OBS CARE(HIGH) SHANNAN LEONG RESIDENT Jun 23, 2025 17:47 ADRIAN PICKETT MD Jun 24, 2025 19:34
[2025-06-24] VITALS (7 sets, daily range): BP systolic 106–130; BP diastolic 59–78; PULSE 64–77; RESP 17–20; TEMP 97.7–98; O2SAT 92–97
[2025-06-24 07:17] LABS: Anion Gap 10 (5-15); Carbon Dioxide 28 mmol/L (20-31); Chloride 101 mmol/L (98-107); Potassium 3.9 mmol/L (3.5-5.1); Sodium 139 mmol/L (136-145)
[2025-06-24 07:18] LABS: Calcium 10.0 mg/dL (8.7-10.4)
[2025-06-24 07:23] LABS: BUN/Creatinine Ratio 16.4 (10.0-20.0); Blood Urea Nitrogen 11 mg/dL (9-23)
[2025-06-24 07:28] LABS: Glucose 169 mg/dL (74-106)
--- NOTE | 2025-06-24 15:33 | DVHPNRES ---
Progress Note Date Seen: Jun 24, 2025 Resident Creating Document: SHANNAN LEONG RESIDENT Medical Necessity Reason Pt with a Central, PICC or Fol: No Subjective Review of Systems Kalli Troy, 49-year-old female with a history of Type II diabetes, obesity, chronic constipation, kidney stones, and recent post-operative status presented to the ER with moderate suprapubic abdominal pain and pressure ongoing for several days. She states the pain was an 8/10 in intensity on admission. Symptoms began spontaneously and have been intermittent, including dysuria and gross hematuria, with a moderate inability to void noted for several minutes prior to arrival. She was evaluated at a clinic three days ago and prescribed bactrim, but her symptoms have persisted despite treatment. She denies fever, nausea, or vomiting. Information was obtained directly from the patient and reviewed alongside nursing notes. 06/22-The patient states that pain has reduced significantly and is 4/10in intenisty and she was able to pass urine in the morning. Her CT abdomen showed possible septic emboli to both lung bases, so CT abdomen was done which was unremarkable. 06/23- The patient states the pain has significantly come down to a 2/10 in intensity. She is able to pass urine and there is no hematuria. Repeat urine culture has been ordered. She was explained about her normal lab reports and her pending urine culture report. 06/24- The patient is doing well clinically. No adverse events noted overnight.She has no abdominal pain and only mild dysuria. Her urine culture grew >100,000 CFU of gram negative rods. We are waiting for the culture and sensitivity report to look at antibiotics for her gram negative coverage. Cardiovascular: hyperipidemia Endocrine: Diabetes Past Surgical History: hysterectomy 10 years back, appendectomy, cholecystectomy Family History: None (non contributory ) Smoke: No ALCOHOL: none Drugs: None Lives: with Family Domestic Violence: Neg Constitutional: No: Fever, Sweats, Weakness Eyes: No: Pain, Vision change, Conjunctivae inflammation, Eyelid inflammation ENT: No: Ear pain, Ear discharge, Nose pain, Nose discharge, Nose congestion, Mouth pain, Mouth swelling, Throat pain, Throat swelling Respiratory: No: Cough, Dry, Shortness of breath, SOB with excertion, Wheezing, Hemoptysis, Pleuritic Pain, Sputum, Wheezing Cardiovascular: No: Chest Pain, Palpitations, Orthopnea, Paroxysmal Noc. Dyspnea, Edema, Lt Headedness Gastrointestinal: no Abdominal Pain, No: Nausea, Vomiting,Diarrhea, Constipation, Melena, Hematochezia Genitourinary: mild Dysuria ; No Incontinence;no hematuria; No Retention Musculoskeletal: No: other, neck pain, shoulder pain, arm pain, back pain, hand pain, leg pain, foot pain Skin: No: Rash, Lesions, Jaundice, Bruising Neurological: No: Weakness, Numbness, Incoordination, Change in speech, Confusion, Seizures Objective vital signs Vital Sign Date Time Temp Pulse Resp B/P (MAP) Pulse Ox O2 Delivery O2 Flow Rate FiO2 06/24/25 05:00 98.0 73 17 109/62 (78) 94 98.0 06/23/25 20:00 Room Air* 0 21 Total Intake and Output 06/23/25 06/23/25 06/24/25 15:00 23:00 07:00 Intake Total 100 ml 1700 ml 800 ml Balance 100 ml 1700 ml 800 ml medications Current Medications Medications Dose Ordered Sig/Mira Route Start Time Stop Time Status Last Admin Dose Admin Acetaminophen/ Hydrocodone Bitart 1 tab Q4HP PRN PO 06/21/25 23:15 Ondansetron HCl 4 mg Q4HP PRN IV 06/21/25 23:15 Enoxaparin Sodium 40 mg DAILY SC 06/22/25 10:00 06/22/25 09:43 40 MG Acetaminophen 650 mg Q6HP PRN PO 06/21/25 23:15 Morphine Sulfate 2 mg Q4HPRN PRN IV 06/21/25 23:15 Nitroglycerin 0.4 mg Q5MINP PRN SL 06/21/25 23:15 Morphine Sulfate 2 mg Q30M PRN IV 06/21/25 23:15 Pantoprazole Sodium 40 mg DAILY IV 06/21/25 23:45 06/23/25 10:47 40 MG Insulin Glargine 10 units QAM SC 06/22/25 07:00 06/24/25 06:21 10 UNITS Diagnostic Test (Pha) 1 strip ACHS 06/22/25 07:00 06/24/25 06:21 1 STRIP Insulin Human Regular ACHS SC 06/22/25 07:00 06/24/25 06:21 3 UNITS Dextrose 50 ml UD PRN IV 06/22/25 00:00 Piperacillin Sod/ Tazobactam Sod 100 ml @ 100 mls/hr Q8H IV 06/23/25 02:00 06/24/25 01:33 100 MLS/HR Examination General Appearance: Alert, Oriented X3, mild distress HEENT: Atraumatic, Mucous membr. moist/pink Respiratory: Clear to auscultation, Normal air movement Cardiovascular: Regular rate, Normal S1, Normal S2, No murmurs Abdominal: Normal bowel sounds, Soft, No masses Extremities: No clubbing, No cyanosis, No edema, Normal pulses Skin: No rashes, No breakdown, No significant lesion Neuro: Normal gait, Normal speech Psych/Mental Status: Mental status NL, Mood NL laboratory and microbiology Laboratory Tests 06/24/25 05:59 06/22/25 06:02 Test 06/24/25 05:59 Range/Units Serum Glucose 169 H 74-106 mg/dL Microbiology Date/Time Source Procedure Growth Status 06/21/25 23:12 Blood Blood Culture - Preliminary NO GROWTH AFTER 48 HOURS OF INCUBATION. Resulted 06/21/25 22:14 Voided Urine Urine Culture - Preliminary Resulted Labs and/or images reviewed: Labs reviewed by me, Image(s) reviewed by me Problem List/Assessment/Plan Problem List/Assessment/Plan # Left pyelonephritis, complicated UTI, Left perinephric and periureteral stranding: iv Zosyn, iv fluid. #Dyslipidemia: On fenofibrate 145 mg daily # Chronic constipation On laxatives at home, continue # Grade 1 obesity: On Ozempic/ GLP 1 #Diabetes mellitus type II: no home insulin, on oral metformin 1000 mg b.i.d. and glimepiride, lantus+ssi target BG 140-180 in hospital. # Possible septic emboli: CT abdomen shows innumerable tiny cavitary lesions at both lung bases measuring up to 2 mm, in room air no respiratory symptoms,ruled out with CT chest #H/o recurrent renal stones, not visible currently in CT, could have passed # Mild dehydration iv hydration continued #Lactic acidosis: could be type B due to home metformin, partial SIRS response. PUD prophylaxis: protonix 40mg daily DVT prophylaxis: Levonox 40mg daily Barriers to discharge: Medical diagnosis and management in progress. PCP: Dr. Perea Plan discussed with Dr Pickett Code Status: Full Code. Goals of care and care plan discussion needed >20 minutes on 06/24/25 Plan discussed with: Patient Plan discussed with: Patient Date of Service: Jun 24, 2025 Billing Provider: ADRIAN PICKETT MD Common Visit Codes: [id number] INP/OBS CARE(HIGH) SHANNAN LEONG RESIDENT Jun 24, 2025 15:33 ADRIAN PICKETT MD Jun 24, 2025 19:33
[2025-06-25 01:00] VITALS: BP 128/78; PULSE 64; RESP 18; TEMP 97.7; O2SAT 96
[2025-06-25 06:07] LABS: Hematocrit 44.1 % (36.0-46.0); Hemoglobin 15.3 g/dL (12.2-16.2); Mean Corpuscular Hemoglobin 29.4 pg (28.0-32.0); Mean Corpuscular Volume 84.7 fL (80.0-100.0); Nucleated Red Blood Cells % 0.0 %
[2025-06-25 06:38] LABS: Anion Gap 11 (5-15); Carbon Dioxide 27 mmol/L (20-31); Chloride 100 mmol/L (98-107); Potassium 3.9 mmol/L (3.5-5.1); Sodium 138 mmol/L (136-145)
[2025-06-25 06:40] LABS: Calcium 9.8 mg/dL (8.7-10.4)
[2025-06-25 06:44] LABS: BUN/Creatinine Ratio 15.9 (10.0-20.0); Blood Urea Nitrogen 11 mg/dL (9-23)
[2025-06-25 06:59] LABS: Glucose 177 mg/dL (74-106)
[2025-06-25 08:00] VITALS: RESP 18; O2SAT 97
[2025-06-25] MEDS ORDERED: CEPH250C PO (11:44)
[2025-06-25 13:13] VITALS: BP 124/84; PULSE 83; RESP 17; TEMP 98; O2SAT 97
--- NOTE | 2025-06-25 14:29 | DVHDSRES ---
Discharge Summary Date of Admission Resident Creating Document: SHANNAN LEONG RESIDENT Jun 21, 2025 at 23:15 Date of Discharge: Jun 25, 2025 Admitting Diagnosis complicated UTI Labs/Diagnostic Data: Laboratory Results Test 06/25/25 12:13 06/25/25 05:42 06/22/25 06:02 06/22/25 01:00 POC Glucose 214 mg/dl (70-106) White Blood Count 5.8 10^3/uL (4.4-10.8) Red Blood Count 5.20 10^6/uL (4.0-5.20) Hemoglobin 15.3 g/dL (12.2-16.2) Hematocrit 44.1 % (36.0-46.0) Mean Corpuscular Volume 84.7 fL (80.0-100.0) Mean Corpuscular Hemoglobin 29.4 pg (28.0-32.0) Mean Corpuscular Hemoglobin Concent 34.7 g/dL (32.0-36.0) Red Cell Distribution Width 13.2 % (11.8-14.3) Platelet Count 347 10^3/uL (140-450) Mean Platelet Volume 7.4 fL (6.9-10.8) Neutrophils (%) (Auto) 46.3 % (37.0-80.0) Lymphocytes (%) (Auto) 42.4 % (10.0-50.0) Monocytes (%) (Auto) 7.3 % (0.0-12.0) Eosinophils (%) (Auto) 3.6 % (0.0-7.0) Basophils (%) (Auto) 0.4 % (0.0-2.0) Neutrophils # (Auto) 2.7 10 ^3/uL (1.6-8.6) Lymphocytes # (Auto) 2.4 10 ^3/uL (0.4-5.4) Monocytes # (Auto) 0.4 10 ^3/uL (0-1.3) Eosinophils # (Auto) 0.2 10 ^3/uL (0-0.8) Basophils # (Auto) 0 10 ^3/uL (0-0.2) Nucleated Red Blood Cells 0.0 % Sodium Level 138 mmol/L (136-145) Potassium Level 3.9 mmol/L (3.5-5.1) Chloride Level 100 mmol/L (98-107) Carbon Dioxide Level 27 mmol/L (20-31) Anion Gap 11 (5-15) Blood Urea Nitrogen 11 mg/dL (9-23) Creatinine 0.69 mg/dL (0.550-1.02) Glomerular Filtration Rate Calc 106 mL/min (>90) BUN/Creatinine Ratio 15.9 (10.0-20.0) Serum Glucose 177 mg/dL (74-106) Calcium Level 9.8 mg/dL (8.7-10.4) Lactic Acid Level 1.5 mmol/L (0.4-2.0) Total Bilirubin 0.6 mg/dL (0.2-1.0) Aspartate Amino Transferase (AST) 16 U/L (13-40) Alanine Aminotransferase (ALT) 20 U/L (7-40) Alkaline Phosphatase 62 U/L (46-116) Total Protein 6.3 g/dL (5.7-8.2) Albumin 4.3 g/dL (3.2-4.8) Influenza Type A Antigen Negative (Negative) Influenza Type B Antigen Negative (Negative) SARS-CoV-2 Antigen (Rapid) Negative (NEGATIVE) Test 06/21/25 21:30 06/21/25 21:14 D-Dimer, Quantitative 0.37 mg/L FEU (0.0-0.49) Hemoglobin A1c 7.2 % A1C (<5.7) Lipase 49 U/L (12-53) Beta HCG, Quantitative 0.9 mIU/mL (1.5-4.2) Urine Color Colorless (Yellow) Urine Clarity Turbid (Clear) Urine pH 6.5 (5.0-9.0) Urine Specific [place] 1.020 (1.001-1.035) Urine Protein 2+ (Negative) Urine Ketones Negative (Negative) Urine Blood 2+ /uL (Negative) Urine Nitrite Negative (Negative) Urine Bilirubin Negative (Negative) Urine Urobilinogen Normal mg/dL (Negative) Urine Leukocyte Esterase 3+ /uL (Negative) Urine RBC 68 /hpf (0 - 4) Urine WBC Clumps Present /hpf (None Seen) Urine Microscopic WBC 518 /HPF (0-5) Urine Squamous Epithelial Cells Few /hpf (<5) Urine Bacteria Few /hpf (None Seen) Urine Mucus Few (None Seen) Urine Glucose 1+ mg/dL (Normal) Other Laboratory Tests 06/25/25 05:42 Brief Hx & Hospital Course: Kalli Troy, 49-year-old female with a history of Type II diabetes, obesity, chronic constipation, kidney stones, and recent post-operative status presented to the ER with moderate suprapubic abdominal pain and pressure ongoing for several days. She states the pain was an 8/10 in intensity on admission. Symptoms began spontaneously and have been intermittent, including dysuria and gross hematuria, with a moderate inability to void noted for several minutes prior to arrival. She was evaluated at a clinic three days ago and prescribed bactrim, but her symptoms have persisted despite treatment. She denies fever, nausea, or vomiting. Information was obtained directly from the patient and reviewed alongside nursing notes. Over the duration of her hospital course, pain gradually reduced daily going from 8/10 in intensity to no pain on the day of discharge. She was gradually able to pass urine without any pain and noticed no more hematuria. Her urine culture improved from 100,000 to <10,000 CFU and she was discharged home after an uneventful hospital course. Cardiovascular: hyperipidemia Endocrine: Diabetes Past Surgical History: hysterectomy 10 years back, appendectomy, cholecystectomy Family History: None (non contributory ) Smoke: No ALCOHOL: none Drugs: None Lives: with Family Domestic Violence: Neg Condition at Discharge: Stable Final Diagnosis/Problems List complicated uti with left pyelonephritis Dyslipidemia Chronic constipation Grade 1 obesity Diabetes mellitus type II H/o recurrent renal stones Mild dehydration Lactic acidosis: could be type B due to home metformin Discharge Disposition: Home Discharge Instruct/Medications Diet: Consistent carbohydrate Activity: No Restrictions, As Tolerated Follow Up/Referral: follow up with pcp in 1-2 weeks Medications: keflex 500 mg tid x3days Scheduled Cephalexin (Keflex Capsule), 500 MG PO TID Glimepiride (Glimepiride), 1 MG PO BID, (Reported) Metformin Hydrochloride (Metformin Hcl), 500 MG PO TID, (Reported) Metformin Hydrochloride (Metformin Hcl), 500 MG PO QID, (Reported) Discharge Statement: "Patient was advised to return to the ER or call 911 if any headaches, dizziness, shortness of breath, chest pain, abdominal pain, bleeding, fevers, or worsening of medical condition. Patient was counseled about treatment plan, medications, possible side effects, patientverbalized understanding. All questions were answered to the best of my ability. This discharge took greater then 30 minutes in planning, reviewing documentation, counseling the patient, and discussing with other team members." ASSESSMENT ASSESSMENT Hospital Course Kalli Troy, 49-year-old female with a history of Type II diabetes, obesity, chronic constipation, kidney stones, and recent post-operative status presented to the ER with moderate suprapubic abdominal pain and pressure ongoing for several days. She states the pain was an 8/10 in intensity on admission. Symptoms began spontaneously and have been intermittent, including dysuria and gross hematuria, with a moderate inability to void noted for several minutes prior to arrival. She was evaluated at a clinic three days ago and prescribed bactrim, but her symptoms have persisted despite treatment. She denies fever, nausea, or vomiting. Information was obtained directly from the patient and reviewed alongside nursing notes. Over the duration of her hospital course, pain gradually reduced daily going from 8/10 in intensity to no pain on the day of discharge. She was gradually able to pass urine without any pain and noticed no more hematuria. Her urine culture improved from 100,000 to <10,000 CFU and she was discharged home after an uneventful hospital course. Assessment complicated uti with left pyelonephritis Dyslipidemia Chronic constipation Grade 1 obesity Diabetes mellitus type II H/o recurrent renal stones Mild dehydration Lactic acidosis: could be type B due to home metformin SHANNAN LEONG RESIDENT Jun 25, 2025 14:29
== END 2025-06-25 16:42 | disposition home or self-care (01) | DRG 690 ==
LOC: ER 21:08 → OVERFLOW 23:15 → MERGE 23:15 → EAST 06-22 03:12
PROVIDERS: ADMIT Internal Medicine Geriatric Medicine; ATTEND Internal Medicine Geriatric Medicine
DX: N12 Tubulo-interstitial nephritis, not specified as acute or chronic (principal); E87.20 Acidosis, unspecified; E78.5 Hyperlipidemia, unspecified; E66.811 Obesity, class 1; E86.0 Dehydration; T38.3X5A Adverse effect of insulin and oral hypoglycemic [antidiabetic] drugs, initial encounter; K59.09 Other constipation; E11.9 Type 2 diabetes mellitus without complications; Z87.442 Personal history of urinary calculi; Z79.899 Other long term (current) drug therapy; Z68.33 Body mass index [BMI] 33.0-33.9, adult; Y92.89 Other specified places as the place of occurrence of the external cause
CPT/HCPCS: 36415; 71250; 74176; 76775; 80048; 80053; 81001; 82962; 83036; 83605; 83690; 84702; 85025; 85379; 87040; 87086; 87088; 87186; 87426; 87804; 93306; 99291; G0378; J1815; J2470; J2543

== ENCOUNTER 2025-07-08 08:19 | Outpatient (CLI) | payer BC ==
[~2025-07-08 08:19] MED LIST changes: +CEPH250C PO; +GLIM-38 PO
[2025-07-08 14:12] LABS: Urine Total Volume, 24 Hours 2150.0 mL
[2025-07-08 14:25] LABS: Creatinine Clearance, Urine 144.9 mL/min (75-115)
== END 2025-07-08 17:00 | disposition home or self-care (01) ==
LOC: LAB 08:19
PROVIDERS: ATTEND Internal Medicine
DX: N20.0 Calculus of kidney (principal)
CPT/HCPCS: 36415; 82507; 82575; 83970; 84550; 84560